=== PATIENT | male | born 1995 | race Caucasian/White ===

== ENCOUNTER 2017-07-21 21:49 | Emergency (ER) | payer MEDICAID ==
[2017-07-21 23:21] VITALS: BP 140/80
== END 2017-07-21 23:21 | disposition home or self-care (01) ==
LOC: ED 21:49
DX: S82.62XA Displaced fracture of lateral malleolus of left fibula, initial encounter for closed fracture (principal); W01.0XXA Fall on same level from slipping, tripping and stumbling without subsequent striking against object, initial encounter; Y93.66 Activity, soccer; Y92.322 Soccer field as the place of occurrence of the external cause; Y99.8 Other external cause status

== ENCOUNTER 2019-02-24 12:15 | Emergency (ER) | payer MEDICAID ==
[~2019-02-24] VITALS: Ht 182.9 cm; Wt 86.6 kg
[2019-02-24 12:24] VITALS: Ht 182.9 cm; Wt 86.6 kg
[2019-02-24 13:28] VITALS: BP 123/74
== END 2019-02-24 13:28 | disposition home or self-care (01) ==
LOC: ED 12:15
DX: R19.7 Diarrhea, unspecified (principal); R51 Headache; R10.9 Unspecified abdominal pain; Z90.89 Acquired absence of other organs; Z98.890 Other specified postprocedural states; Z91.041 Radiographic dye allergy status

== ENCOUNTER 2019-07-27 16:22 | Emergency (ER) | payer MEDICAID ==
[~2019-07-27] VITALS: Ht 182.9 cm; Wt 88.5 kg
[2019-07-27 16:27] VITALS: BP 121/75; Ht 182.9 cm; Wt 88.5 kg
[2019-07-27 17:09] LABS: BASOPHIL % 0.3 % (0-2); PLATELET COUNT 255 x10^3mcL (130-400); RED CELL DISTRIBUTION WIDTH 12.6 % (11.5-14.5)
[2019-07-27 17:23] LABS: CALCIUM 9.3 mg/dL (8.5-10.1); CARBON DIOXIDE 32.1 mmol/L (21-32); CHLORIDE SERUM 99 mmol/L (98-107); CREATININE SERUM 1.1 mg/dL (0.7-1.3); GFR1 > 60 mL/min; GLUCOSE SERUM 104 mg/dL (74-106); POTASSIUM SERUM 3.9 mmol/L (3.5-5.1); SODIUM SERUM 139 mmol/L (136-145)
[2019-07-27 17:25] LABS: ALBUMIN 3.9 g/dL (3.4-5.0); ALKALINE PHOSPHATASE 96 U/L (46-116); ALT/SGPT 30 U/L (16-63); AST/SGOT 17 U/L (15-37); LIPASE 61 IU/L (73-393); TOTAL PROTEIN, SERUM 8.2 g/dL (6.4-8.2)
== END 2019-07-27 17:59 | disposition home or self-care (01) ==
LOC: ED 16:22
PROVIDERS: Emergency Medicine
DX: B34.9 Viral infection, unspecified (principal); Z88.8 Allergy status to other drugs, medicaments and biological substances; Z90.89 Acquired absence of other organs
CPT/HCPCS: 36415; J1885

== ENCOUNTER 2020-04-12 12:52 | Emergency (ER) | payer MEDICAID, SELFPAY ==
[~2020-04-12] VITALS: Ht 182.9 cm; Wt 97.1 kg
[2020-04-12 12:58] VITALS: BP 131/83; Ht 182.9 cm; Wt 97.1 kg
== END 2020-04-12 13:42 | disposition home or self-care (01) ==
LOC: ED 12:52
DX: R50.9 Fever, unspecified (principal); R51 Headache; M79.10 Myalgia, unspecified site; Z20.828 Contact with and (suspected) exposure to other viral communicable diseases; Z90.89 Acquired absence of other organs; Z91.041 Radiographic dye allergy status
CPT/HCPCS: U0003-CS